=== PATIENT | female | born 1985 | race Caucasian/White ===

== ENCOUNTER 2017-01-18 20:40 | Emergency (ER) | payer OTHER ==
[~2017-01-18] VITALS: Ht 165.1 cm; Wt 86.9 kg
[2017-01-18 20:44] VITALS: BP 110/85; PULSE 84; RESP 18; TEMP 98.2; O2SAT 96
[2017-01-18] MEDS ORDERED: ONDANSETRON HCL 4 MG/2 ML VIAL IV PUSH ONE (21:00)
[2017-01-18] MEDS ORDERED: SODIUM CHLOR 0.9% 1000 ML INJ 1,000 ML IV ONE ×2 (21:00)
[2017-01-18] MEDS ORDERED: AMOX500C PO (21:00)
[2017-01-18] MEDS ORDERED: TRAM50TA PO (21:00)
--- NOTE | 2017-01-18 21:01 | PD ---
HPI Chief Complaint: GI Complaint Time Seen by Provider: 20:54 Travel History International Travel<30 days: No Contact w/Intl Traveler<30days: No Traveled to known affect area: No History of Present Illness HPI This 31-year-old female is complaining of vomiting. She says she's had multiple bouts of vomiting since 9:30 this morning. His been no diarrhea. She has a history of cholecystectomy. Did a trial of Pedialyte without success. She tracks meclizine without success. She says there is no chance of . She has been on Augmentin and tramadol for a few days because of some dental problems PFSH Past Medical History Diminished Hearing: No Gastrointestinal Disorders: Yes (IBS) Neurologic: Yes (VERTIGO) ?: Not LMP: 2 DAYS AGO Past Surgical History Abdominal Surgery: Yes Cholecystectomy: Yes Social History Alcohol Use: No Tobacco Use: No Substance Use: No Allergies-Medications (Allergen,Severity, Reaction): Coded Allergies: No Known Allergies (Unverified , 01/18/17) Reported Meds & Prescriptions Reported Meds & Active Scripts Active Reported Tramadol (Tramadol HCl) 50 Mg Tab 50 Mg PO Q8H PRN Amoxicillin 500 Mg Cap 500 Mg PO BID Review of Systems General / Constitutional: No: Fever, Chills Eyes: No: Diploplia, Blurred Vision HENT: No: Vertigo, Lightheadedness Cardiovascular: No: Chest Pain or Discomfort, Palpitations Respiratory: No: Cough, Shortness of Breath Gastrointestinal: Positive: Nausea, Vomiting, No: Diarrhea Genitourinary: No: Dysuria, Nocturia Musculoskeletal: No: Myalgias Skin: No Rash Neurologic: Positive: Weakness Hematologic/Lymphatic: No: Easy Bruising Physical Exam Narrative GENERAL: Well-developed female. She is vomiting on arrival SKIN: Focused skin assessment warm/dry. HEAD: Atraumatic. Normocephalic. EYES: Pupils equal and round. No scleral icterus. No injection or drainage. ENT: No nasal bleeding or discharge. Mucous membranes pink and moist. NECK: Trachea midline. No JVD. CARDIOVASCULAR: Regular rate and rhythm. No murmur appreciated. RESPIRATORY: No accessory muscle use. Clear to auscultation. Breath sounds equal bilaterally. GASTROINTESTINAL: Abdomen soft, mild mid abdominal tenderness nondistended. Hepatic and splenic margins not palpable. MUSCULOSKELETAL: No obvious deformities. No clubbing. No cyanosis. No edema. NEUROLOGICAL: Awake and alert. No obvious cranial nerve deficits. Motor grossly within normal limits. Normal speech. PSYCHIATRIC: Appropriate mood and affect; insight and judgment normal. Data Data Last Documented VS Vital Signs Date Time Temp Pulse Resp B/P Pulse Ox O2 Delivery O2 Flow Rate FiO2 01/18/17 20:44 98.2 84 18 110/85 96 Orders Complete Blood Count With Diff (01/18/17 20:59) Comprehensive Metabolic Panel (01/18/17 20:59) Lipase (01/18/17 20:59) Sodium Chlor 0.9% 1000 Ml Inj (Ns 1000 M (01/18/17 21:00) Sodium Chlor 0.9% 1000 Ml Inj (Ns 1000 M (01/18/17 21:00) Ondansetron Inj (Zofran Inj) (01/18/17 21:00) Prochlorperazine Inj (Compazine Inj) (01/18/17 22:15) Diphenhydramine Inj (Benadryl Inj) (01/18/17 22:15) Labs Laboratory Tests Test 01/18/17 21:10 White Blood Count 11.4 TH/MM3 Red Blood Count 4.98 MIL/MM3 Hemoglobin 14.8 GM/DL Hematocrit 43.6 % Mean Corpuscular Volume 87.6 FL Mean Corpuscular Hemoglobin 29.6 PG Mean Corpuscular Hemoglobin 33.8 % Concent Red Cell Distribution Width 12.4 % Platelet Count 240 TH/MM3 Mean Platelet Volume 9.0 FL Neutrophils (%) (Auto) 75.7 % Lymphocytes (%) (Auto) 15.5 % Monocytes (%) (Auto) 6.0 % Eosinophils (%) (Auto) 0.4 % Basophils (%) (Auto) 2.4 % Neutrophils # (Auto) 8.6 TH/MM3 Lymphocytes # (Auto) 1.8 TH/MM3 Monocytes # (Auto) 0.7 TH/MM3 Eosinophils # (Auto) 0.0 TH/MM3 Basophils # (Auto) 0.3 TH/MM3 CBC Comment DIFF FINAL Differential Comment Sodium Level 142 MEQ/L Potassium Level 3.5 MEQ/L Chloride Level 108 MEQ/L Carbon Dioxide Level 24.9 MEQ/L Anion Gap 9 MEQ/L Blood Urea Nitrogen 13 MG/DL Creatinine 0.65 MG/DL Estimat Glomerular Filtration 108 ML/MIN Rate Random Glucose 92 MG/DL Calcium Level 8.4 MG/DL Total Bilirubin 0.6 MG/DL Aspartate Amino Transf 13 U/L (AST/SGOT) Alanine Aminotransferase 27 U/L (ALT/SGPT) Alkaline Phosphatase 91 U/L Total Protein 7.0 GM/DL Albumin 3.7 GM/DL Lipase 84 U/L MDM Medical Decision Making Medical Screen Exam Complete: Yes Emergency Medical Condition: Yes Medical Record Reviewed: Yes Differential Diagnosis Differential includes viral syndrome, adverse medication effect Narrative Course Patient has been given IV fluids. After Zofran she was still a bit nauseated so Also given Compazine. She feels better after the Compazine. She'll be released with prescription for Zofran. I have recommended she hold the Augmentin tramadol for a day. Diagnosis Primary Impression: Acute gastritis Qualified Code: K29.00 - Other acute gastritis without hemorrhage Additional Impression: Adverse drug reaction Qualified Code: T88.7XXA - Adverse drug reaction, initial encounter Departure Forms: Tests/Procedures, Work Release Enter return to work date: Jan 20, 2017 Scripts Ondansetron Odt (Zofran Odt)4 Mg Tab4 Mg SL Q6HR PRN (Nausea/Vomiting) #10 TAB Ref 0 Prov:Tarik Daugherty MD 01/18/17 Disposition: 01 DISCHARGE HOME Condition: Stable Tarik Daugherty MD Jan 18, 2017 21:01
[2017-01-18 21:28] LABS: AUTOMATED NEUTROPHIL # 8.6 TH/MM3 (1.8-7.7); BASOPHIL # 0.3 TH/MM3 (0-0.2); BASOPHIL % 2.4 % (0.0-2.0); EOSINOPHIL % 0.4 % (0.0-4.0); HEMATOCRIT 43.6 % (35.0-46.0); LYMPH % 15.5 % (9.0-44.0); LYMPHOCYTE # 1.8 TH/MM3 (1.0-4.8); MEAN CELL VOLUME 87.6 FL (80.0-100.0); MEAN CORPUSCULAR HEMOGLOBIN 29.6 PG (27.0-34.0); MEAN CORPUSCULAR HGB CONC 33.8 % (32.0-36.0); NEUT % 75.7 % (16.0-70.0); PLATELET COUNT 240 TH/MM3 (150-450); RED BLOOD COUNT 4.98 MIL/MM3 (4.00-5.30); RED CELL DISTRIBUTION WIDTH 12.4 % (11.6-17.2); WHITE BLOOD COUNT 11.4 TH/MM3 (4.0-11.0)
[2017-01-18 21:35] LABS: CHLORIDE 108 MEQ/L (98-107); HEMO FLAGS DIFF FINAL; POTASSIUM 3.5 MEQ/L (3.5-5.1); SODIUM (NA) 142 MEQ/L (136-145)
[2017-01-18 21:39] LABS: ANION GAP 9 MEQ/L (5-15); BICARBONATE 24.9 MEQ/L (21.0-32.0); BLOOD UREA NITROGEN 13 MG/DL (7-18)
[2017-01-18 21:42] LABS: ALT (GPT) 27 U/L (10-53); AST (GOT) 13 U/L (15-37); GLOMERULAR FILTRATION RATE 108 ML/MIN (>89)
[2017-01-18 21:43] LABS: TOTAL BILIRUBIN ADULT 0.6 MG/DL (0.2-1.0)
[2017-01-18 21:44] LABS: ALKALINE PHOSPHATASE 91 U/L (45-117)
[2017-01-18] MEDS ORDERED: PROCHLORPERAZINE INJ 10 MG/2 ML VIAL IV PUSH ONE (22:15)
[2017-01-18] MEDS ORDERED: diphenhydrAMINE HCL 50 MG/ML VIAL IV PUSH ONE (22:15)
[2017-01-18] MEDS ORDERED: ZOFR4TAB3 SL (22:58)
[2017-01-18 23:21] VITALS: BP 116/72
== END 2017-01-18 23:25 | disposition home or self-care (01) ==
LOC: PHED 20:40
DX: K29.00 Acute gastritis without bleeding (principal); T88.7XXA Unspecified adverse effect of drug or medicament, initial encounter; Z87.19 Personal history of other diseases of the digestive system; Z86.69 Personal history of other diseases of the nervous system and sense organs
CPT/HCPCS: 80053; 83690; 85025; 96361; 96374; 96375; 99283; J0780; J1200; J2405; J7030